=== PATIENT | male | born 1990 | race Caucasian/White ===

== ENCOUNTER 2020-07-28 18:19 | Emergency (ER) | payer OTHER ==
[~2020-07-28] VITALS: Ht 172.7 cm; Wt 104.3 kg
[2020-07-28 20:54] VITALS: BP 146/91
== END 2020-07-28 20:55 | disposition short-term general hospital (02) ==
LOC: M.ERS 18:19
DX: S02.69XA Fracture of mandible of other specified site, initial encounter for closed fracture (principal); W22.8XXA Striking against or struck by other objects, initial encounter; Y93.89 Activity, other specified; Y92.89 Other specified places as the place of occurrence of the external cause; Y99.8 Other external cause status